=== PATIENT | female | born 1945 | race Caucasian/White ===

== ENCOUNTER → 2017-04-05 | Outpatient (CLI) | payer OTHER | LOC: BMCIMAGING 14:52 | PROVIDERS: ATTEND Internal Medicine | DX: Z12.31 Encounter for screening mammogram for malignant neoplasm of breast (principal); Z85.3 Personal history of malignant neoplasm of breast | CPT/HCPCS: G0202 ==

== ENCOUNTER → 2018-06-22 | Outpatient (CLI) | payer OTHER | LOC: BMCIMAGING 13:59 | PROVIDERS: ATTEND Internal Medicine Geriatric Medicine | DX: Z13.820 Encounter for screening for osteoporosis (principal); M81.0 Age-related osteoporosis without current pathological fracture; Z78.0 Asymptomatic menopausal state ==

== ENCOUNTER → 2019-02-19 | Outpatient (CLI) | payer OTHER | LOC: BMCIMAGING 16:14 ==

== ENCOUNTER → 2019-02-22 | Outpatient (CLI) | payer OTHER | LOC: FIMAGING 11:42 ==

== ENCOUNTER 2019-03-05 20:55 | Inpatient (IN) | payer OTHER | END 2019-03-09 15:51 | disposition home or self-care (01) | LOC: F2W 23:50 → F1N 03-06 14:21 ==